=== PATIENT | female | born 1970 | race Hispanic/Latino ===

== ENCOUNTER 2024-02-16 10:41 | Outpatient (CLI) | payer BC | END 2024-02-16 10:42 | disposition home or self-care (01) | LOC: CSHWCC 10:41 | PROVIDERS: ATTEND Nurse Practitioner Family | DX: E11.622 Type 2 diabetes mellitus with other skin ulcer (principal); L97.225 Non-pressure chronic ulcer of left calf with muscle involvement without evidence of necrosis; T81.32XD Disruption of internal operation (surgical) wound, not elsewhere classified, subsequent encounter | CPT/HCPCS: 11042; 11045 ==

== ENCOUNTER 2024-02-27 08:56 | Outpatient (CLI) | payer BC | END 2024-02-27 08:57 | disposition home or self-care (01) | LOC: CSHWCC 08:56 | PROVIDERS: ATTEND Nurse Practitioner Family | DX: E11.622 Type 2 diabetes mellitus with other skin ulcer (principal); T81.32XD Disruption of internal operation (surgical) wound, not elsewhere classified, subsequent encounter; L97.225 Non-pressure chronic ulcer of left calf with muscle involvement without evidence of necrosis | CPT/HCPCS: 11042; 11045 ==

== ENCOUNTER 2024-03-05 09:23 | Outpatient (CLI) | payer BC | END 2024-03-05 09:24 | disposition home or self-care (01) | LOC: CSHWCC 09:23 | PROVIDERS: ATTEND Nurse Practitioner Family | DX: T81.32XD Disruption of internal operation (surgical) wound, not elsewhere classified, subsequent encounter (principal); E11.622 Type 2 diabetes mellitus with other skin ulcer; L97.225 Non-pressure chronic ulcer of left calf with muscle involvement without evidence of necrosis ==

== ENCOUNTER 2024-03-13 12:52 | Outpatient (CLI) | payer BC | END 2024-03-13 12:53 | disposition home or self-care (01) | LOC: CSHWCC 12:52 | PROVIDERS: ATTEND Nurse Practitioner Family | DX: T81.32XD Disruption of internal operation (surgical) wound, not elsewhere classified, subsequent encounter (principal); E11.622 Type 2 diabetes mellitus with other skin ulcer; L97.225 Non-pressure chronic ulcer of left calf with muscle involvement without evidence of necrosis | CPT/HCPCS: 11042; 11045 ==

== ENCOUNTER 2024-04-16 08:24 | Outpatient (CLI) | payer BC | END 2024-04-16 08:25 | disposition home or self-care (01) | LOC: CSHWCC 08:24 | PROVIDERS: ATTEND Nurse Practitioner Family | DX: E11.622 Type 2 diabetes mellitus with other skin ulcer (principal); T81.32XD Disruption of internal operation (surgical) wound, not elsewhere classified, subsequent encounter; L97.225 Non-pressure chronic ulcer of left calf with muscle involvement without evidence of necrosis | CPT/HCPCS: 97597; 97598 ==

== ENCOUNTER 2024-05-14 09:05 | Outpatient (CLI) | payer BC | END 2024-05-14 09:06 | disposition home or self-care (01) | LOC: CSHWCC 09:05 | PROVIDERS: ATTEND Nurse Practitioner Family | DX: E11.622 Type 2 diabetes mellitus with other skin ulcer (principal); L97.222 Non-pressure chronic ulcer of left calf with fat layer exposed | CPT/HCPCS: 11042; 11045 ==

== ENCOUNTER 2024-06-18 08:53 | Outpatient (CLI) | payer BC | END 2024-06-18 08:54 | disposition home or self-care (01) | LOC: CSHWCC 08:53 | PROVIDERS: ATTEND Nurse Practitioner Family | DX: E11.622 Type 2 diabetes mellitus with other skin ulcer (principal); L97.222 Non-pressure chronic ulcer of left calf with fat layer exposed | CPT/HCPCS: 97597 ==